=== PATIENT | female | born 1970 | race Caucasian/White ===

== ENCOUNTER 2017-08-25 16:57 | Inpatient (IN) ==
[2017-08-26] MEDS ORDERED: Nitroglycerin 0.4 MG TAB.SUBL SL PRN (01:36)
[2017-08-26] MEDS ORDERED: Ondansetron 4 MG/2 ML VIAL IVP PRN (01:36)
[2017-08-26] MEDS: *HR* OxyCODONE/APAP 5/325 TABLET PO PRN ×4 (02:20→21:13)
[2017-08-26 03:18] LABS: Basophils % 0.1 %; Eosinophils # 0.2 K/mcL (0.0-0.6); Hematocrit 34.6 % (35.3-44.9); Hemoglobin 11.8 g/dL (11.5-15.4); Immature Granulocytes % 0.2 % (0-4); Immature Platelets 1.6 % (1.1-6.1); Lymphocytes # 3.3 K/mcL (0.6-4.6); Lymphocytes % 33.3 %; Mean Corpuscular HGB Conc 34.1 g/dL (31.6-35.5); Mean Corpuscular Hemoglobin 30.6 pg (28.0-33.3); Mean Corpuscular Volume 89.9 fL (83.0-100.0); Mean Platelet Volume 9.2 fL (9.4-12.4); Monocytes # 0.6 K/mcL (0.0-1.3); Monocytes % 5.6 %; Neutrophils # 5.9 K/mcL (1.6-8.9); Platelet Count 226 K/mcL (140-400); Red Blood Count 3.85 M/mcL (3.82-4.97); Red Cell Distribution Width 12.9 % (11.5-14.5); Segmented Neutrophils % 58.8 %
[2017-08-26 03:34] LABS: Prothrombin Time 10.9 Seconds (9.4-12.1)
[2017-08-26 03:37] LABS: Alanine Aminotransferase 15 Units/L (7-52); Albumin 3.6 g/dL (3.5-5.7); Albumin/Globulin Ratio 1.4 (1.1-2.2); Alkaline Phosphatase 71 Units/L (34-104); Aspartate Amino Transferase 18 Units/L (13-39); BUN/Creatinine Ratio 26 (6-26); Bilirubin,Total 0.4 mg/dL (0.3-1.0); Blood Urea Nitrogen 17 mg/dL (6-20); Calcium 8.8 mg/dL (8.6-10.3); Carbon Dioxide 25 mEq/L (23-29); Chloride 108 mEq/L (98-107); Globulin 2.5 g/dL (2.4-3.5); Glucose 100 mg/dL (70-105); Osmolality,Calculated 290 (280-300); Potassium 3.6 mEq/L (3.5-5.1); Sodium 139 mEq/L (136-145); Total Protein 6.1 g/dL (6.4-8.9); eGFR For African Americans > 60 (> 60); eGFR For Non-African Americans > 60 (> 60)
[2017-08-26] MEDS ORDERED: Regadenoson 0.4 MG/5 ML SYRINGE IVP ONE (05:45)
[2017-08-26] MEDS ORDERED: Naloxone 0.4 MG/ML INJ IVP PRN (05:59)
--- NOTE | 2017-08-26 06:28 | Internal Med History&Physical ---
Date of Encounter: 08/26/17 Time of Encounter: 00:30 Internal Medicine - H&P: HPI Chief complaint: Chest pain Admitted From: Home Plans for Post Hospital Care: Home History of present illness: Ms. Powers is a 47 year old female Patient presented to the ER in [place] after experiencing left-sided chest pain while at rest at home. She stated that it radiated down her left arm. The pain initially started 8 PM the night prior to admission and did not improve. The pain is constant and did not change during this time. Patient also states that she was feeling nauseous and vomited multiple times but she denies abdominal pain. on the way to the ER at [place] she received 324 mg of aspirin, 1 sublingual nitroglycerin, but did not improve her pain. She has a history of pain similar to this in the past about 3 years ago, and had a cardiac catheter performed but it was negative. She has a significant family history of coronary artery disease is all in the mother and father. Emergency room at [place] she received a dose of heparin, Zofran and a total of 10 mg of morphine. She was transferred here because the stress test machine at their facility was not functioning well. Of note patient states that a few days ago she passed to blood clots rectally, and has been noting bruising on her legs that she cannot explain. Past Med Surg Social Fam HX - Past Medical History Medical history: asthma, diabetes, GERD, hyperlipidemia, hypertension Additional medical history: degenerative disc disease Psychiatric history: bipolar - Past Surgical History Surgical History: cholecystectomy, other Additional surgical history: tubal - Social History Smoking Status: Never smoker Smokeless Tobacco Status: No Alcohol use: none Drug use: none - Family History Mother Hx Family Cardiac Disorders: Yes (OK, HTN) Hx Family Respiratory Disorders: Yes (COPD, ASHTMA) Hx Family Endocrine Disorder: Yes (DM) Internal Medicine - H&P: Meds Estrogens, Conjugated [Premarin] 0.45 mg PO DAILY 08/25/17 [History] HYDROcodone/Acet 5/325 mg [[place] 5-325 mg] 1 tab PO TID PRN 08/25/17 [History] Lisinopril [Zestril] 5 mg PO DAILY 08/25/17 [History] OLANZapine [Zyprexa] 5 mg PO DAILY 08/25/17 [History] Omeprazole [PriLOSEC] 40 mg PO DAILY 08/25/17 [History] Simvastatin [Zocor] 5 mg PO DAILY 08/25/17 [History] Gabapentin [Gralise] 600 mg PO TID 08/26/17 [History] metFORMIN [Glucophage] 1,000 mg PO DAILY 08/26/17 [History] rOPINIRole [Requip] 1 mg PO HS 08/26/17 [History] 3 Allergy/AdvReac Type Severity Reaction Status Date / Time No Known Allergies Allergy Verified 08/26/17 00:27 All Systems PM: A 10-system review of systems was performed and is negative for pertinent findings except as documented above in the HPI. - Constitutional Vitals: Temp Pulse Resp BP Pulse Ox 97.8 F 59 16 115/84 96 08/26/17 04:02 08/26/17 04:02 08/26/17 04:02 08/26/17 04:02 08/26/17 04:02 General appearance: Present: mild distress, A&O X 3, obese - Head Head exam: Present: normal inspection - Respiratory Respiratory exam: Present: CTAB. Absent: rales, rhonchi - Cardiovascular Cardiovascular exam: Present: RRR. Absent: diastolic murmur, systolic murmur - GI/Abdominal GI/Abdominal exam: Present: normal bowel sounds. Absent: guarding, tenderness - Extremities Exam Extremities exam: Present: pedal edema, warm, radial pulses palpable and symmetrical. Absent: tenderness - Neurological Exam Neurological exam: Present: oriented X3. Absent: motor sensory deficit, no focal deficits - Skin Additional comments: The patient described bruising on her legs, significant bruising on her legs is not noted. There were however some small 0.5-1 cm dark spots on her legs were not tender with palpation Internal Med - H&P Results - Labs CBC & Chem 7: 08/26/17 02:56 08/26/17 02:56 Labs: Short CBC 08/26/17 Range/Units 02:56 WBC 10.0 (4.3-11.1) K/mcL Hgb 11.8 (11.5-15.4) g/dL Hct 34.6 L (35.3-44.9) % Plt Count 226 (140-400) K/mcL Neutrophils # 5.9 (1.6-8.9) K/mcL BMP 08/26/17 02:56 Sodium 139 Potassium 3.6 Chloride 108 H Carbon Dioxide 25 BUN 17 Creatinine 0.65 Glucose 100 Calcium 8.8 Cardiac Enzymes 08/26/17 08/26/17 Range/Units 01:28 02:56 Troponin I < 0.03 < 0.03 (< 0.04) ng/mL Liver Function 08/26/17 Range/Units 02:56 Total Bilirubin 0.4 (0.3-1.0) mg/dL AST 18 (13-39) Units/L ALT 15 (7-52) Units/L Alkaline Phosphatase 71 (34-104) Units/L Albumin 3.6 (3.5-5.7) g/dL - Assessment and plan (1) Chest pain Current Visit: Yes Status: Acute Assessment and plan: Transferred from [facility] after some workup and treatment. She received 5 mg of morphine twice as well as a dose of heparin. Troponins have been negative thus far. EKG was normal sinus rhythm twice prior to her arrival. Due to her history of similar pain in the past leading to a cardiac catheter which was negative at that time she was transferred here for further evaluation. Other causes of chest pain were also addressed, her d-dimer at [facility] was less than 950 making pulmonary embolism less likely. Patient does not work and denies heavy lifting and she was not tender with palpation. Patient's BNP is only 18 as well. She does have a history of asthma and uses an albuterol inhaler about once a week, but she states that this is different than her asthma symptoms. Because patient's troponins were not elevated heparin drip was not started. Pain control was achieved with Percocet. Stress test in the morning Cardiology consult Repeat EKG in the morning Continue following troponins Qualifiers: Qualified Code(s): R07.9 - Chest pain, unspecified (2) Gastrointestinal bleed Current Visit: Yes Status: Acute Assessment and plan: Questionable GI bleed as per patient. She states that recently she had to large blood clots passed rectally. Her hemoglobin levels are within normal limits. Hesitant to treat her with heparin because of this not being confirmed. Obtain stool occult blood test and follow-up results Consider GI consult if positive Qualifiers: Qualified Code(s): K92.2 - Gastrointestinal hemorrhage, unspecified (3) Urinary tract infection Current Visit: Yes Status: Acute Assessment and plan: Patient was found to have a urinary tract infection at the [place] ER as evidenced by small leukocytic esterase, positive bacteria. There is negative nitrite but culture was indicated to ER there treated her with ciprofloxacin before sending her here. Patient denies dysuria. Follow-up urine cultures. Discontinue ciprofloxacin, and treat with Macrobid. Qualifiers: Qualified Code(s): N39.0 - Urinary tract infection, site not specified (4) Diabetes Current Visit: Yes Status: Acute Assessment and plan: Patient states that she has diabetes though she is not on insulin and does not take metformin. She controls her blood sugars with her diet. Continue to monitor blood sugar with meals and at night. Qualifiers: Diabetes mellitus type: type 2 Diabetes mellitus skilled nursing insulin use: without skilled nursing use Diabetes mellitus complication status: without complication Qualified Code(s): E11.9 - Type 2 diabetes mellitus without complications (5) GERD (gastroesophageal reflux disease) Current Visit: Yes Status: Acute Assessment and plan: Chronic patient takes Prilosec at home Continue home medicine Qualifiers: Esophagitis presence: esophagitis presence not specified Qualified Code(s) : K21.9 - Gastro-esophageal reflux disease without esophagitis (6) HTN (hypertension) Current Visit: Yes Status: Acute Assessment and plan: Chronic patient takes lisinopril at home Continue home medicine Qualifiers: Hypertension type: essential hypertension Qualified Code(s): I10 - Essential (primary) hypertension (7) Hyperlipidemia Current Visit: Yes Status: Acute Assessment and plan: Chronic patient takes simvastatin at home Continue home medicine Qualifiers: Qualified Code(s): E78.5 - Hyperlipidemia, unspecified - Time Spent With Patient Total time spent is greater than 50% in coordination of care (as documented) at patient's floor/unit and/or counseling patient: Greater than 35 minutes
[2017-08-26 06:55] LABS: Hematocrit 34.9 % (35.3-44.9); Hemoglobin 11.7 g/dL (11.5-15.4); Mean Corpuscular HGB Conc 33.5 g/dL (31.6-35.5); Mean Corpuscular Hemoglobin 30.3 pg (28.0-33.3); Mean Corpuscular Volume 90.4 fL (83.0-100.0); Mean Platelet Volume 9.2 fL (9.4-12.4); Platelet Count 208 K/mcL (140-400); Red Blood Count 3.86 M/mcL (3.82-4.97)
[2017-08-26 07:15] LABS: BUN/Creatinine Ratio 25 (6-26); Blood Urea Nitrogen 17 mg/dL (6-20); Calcium 8.7 mg/dL (8.6-10.3); Carbon Dioxide 25 mEq/L (23-29); Chloride 107 mEq/L (98-107); Glucose 93 mg/dL (70-105); Osmolality,Calculated 289 (280-300); Potassium 3.6 mEq/L (3.5-5.1); Sodium 139 mEq/L (136-145); eGFR For African Americans > 60 (> 60); eGFR For Non-African Americans > 60 (> 60)
[2017-08-26] MEDS: Nitrofurantoin (BID) 100 MG CAPSULE PO SCH ×2 (09:52→17:09)
[2017-08-26] MEDS: Gabapentin 300 MG CAPSULE PO SCH ×3 (09:52→21:12)
[2017-08-26] MEDS: OLANZapine 5 MG TAB.RAPDIS PO SCH (09:52)
--- NOTE | 2017-08-26 12:36 | Electrocardiograph Report ---
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
--- NOTE | 2017-08-26 17:03 | Internal Med Progress Note ---
Date of Encounter: 08/26/17 Time of Encounter: 11:00 - Assessment and plan (1) Chest pain Current Visit: Yes Status: Acute Assessment and plan: Patient reported left-sided chest pain while at rest prior to admission. She reports radiation to left arm, at that time it was constant. Patient reports associated nausea, vomiting without abdominal pain. Patient was transferred here from [facility] due to their inability to perform a stress test. Patient is a 2 day stress test, day 1 completed today. Troponins have been negative. EKG shows sinus rhythm with a rate of 62, NC interval 201, QRS 92, QTC 401/QTC 406. Continue telemetry Aspirin and nitroglycerin for chest pain Continue to monitor labs and vitals Day 2 stress test tomorrow Consider cardiology consult after results of stress test if warranted. Qualifiers: Chest pain type: unspecified Qualified Code(s): R07.9 - Chest pain, unspecified (2) Diabetes Current Visit: Yes Status: Acute Assessment and plan: Chronic. Signs feel insulin, Accu-Cheks before meals at bedtime, diabetic/ cardiac diet. 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 Continue home medication. Qualifiers: Esophagitis presence: esophagitis presence not specified Qualified Code(s) : K21.9 - Gastro-esophageal reflux disease without esophagitis (4) Gastrointestinal bleed Current Visit: Yes Status: Acute Assessment and plan: Patient reports to admitting physician that she has passed a couple of large blood clots by rectum. Patient makes no mention of this during my exam today. There is no abdominal pain. Patient denies any nausea, vomiting, diarrhea. Hemoglobin has remained steady and stable throughout. There is no sign of anemia or acute bleeding. Occult blood is ordered and pending. Qualifiers: GI bleed type/associated pathology: unspecified gastrointestinal hemorrhage type Qualified Code(s): K92.2 - Gastrointestinal hemorrhage, unspecified (5) HTN (hypertension) Current Visit: Yes Status: Acute Assessment and plan: Chronic. Well controlled. Continue lisinopril. Qualifiers: Hypertension type: essential hypertension Qualified Code(s): I10 - Essential (primary) hypertension (6) Hyperlipidemia Current Visit: Yes Status: Acute Assessment and plan: Chronic. Continue home dose of Pravachol. Qualifiers: Qualified Code(s): E78.5 - Hyperlipidemia, unspecified (7) Urinary tract infection Current Visit: Yes Status: Acute Assessment and plan: Patient was found to have urinary tract infection [facility] as evidenced by small amount of leukocyte esterase, positive bacteria. Urine was negative for nitrites blood culture was triggered. She was treated with ciprofloxacin at [facility]. Patient denies any urinary symptoms, no abdominal pain, no nausea, vomiting, fever, chills. Admitting physician discontinued Cipro, started treatment with Macrobid. We will attempt to follow cultures from [facility]. Qualifiers: Urinary tract infection type: acute cystitis Hematuria presence: without hematuria Qualified Code(s): N30.00 - Acute cystitis without hematuria (8) DVT prophylaxis Current Visit: Yes Status: Acute Assessment and plan: Encourage ambulation. SCDs ordered. - Time Spent With Patient Total time spent is greater than 50% in coordination of care (as documented) at patient's floor/unit and/or counseling patient: - Subjective Interval history: Patient was seen and assessed at bedside at 11 AM. Patient reports that she has had some left chest pain with radiation to her left shoulder, describes sharp pain in mid thoracic back. She reports that all of these become worse with deep inspiration and movement. There is no tenderness to palpation on chest or back. She denies nausea, vomiting, diarrhea or constipation. She denies current chest pain or shortness of breath. She denies abdominal pain or peripheral edema. She denies any headache or vision changes. Patient is a 2 day stress, she is aware and all questions have been answered.. - Constitutional Vitals: Temp Pulse Resp BP Pulse Ox 97.6 F 66 18 99/58 97 08/26/17 15:26 08/26/17 15:26 08/26/17 15:26 08/26/17 15:26 08/26/17 15:26 General appearance: Present: cooperative, A&O X 3, morbidly obese, no acute distress, obese, answers questions appropriately - Head Head exam: Present: atraumatic, normal inspection, normocephalic - Eye Eye exam: Present: normal appearance, conjuntiva pink, sclera anicteric - Neck Neck exam general surgery: Present: supple, trachea midline. Absent: lymphadenopathy, tenderness - Respiratory Respiratory exam: Present: CTAB. Absent: accessory muscle use, rales, rhonchi, wheezes - Cardiovascular Cardiovascular exam: Present: RRR, +S1, +S2. Absent: diastolic murmur, gallop, rubs, systolic murmur - GI/Abdominal GI/Abdominal exam: Present: normal bowel sounds, soft. Absent: distended, hepatomegaly, tenderness - Extremities Exam Extremities exam: Present: normal capillary refill, warm, radial pulses palpable and symmetrical. Absent: calf tenderness, cyanotic, pedal edema - Neurological Exam Neurological exam: Present: alert, oriented X3, no focal deficits, strengths equal and symetr throughout. Absent: altered, facial droop, speech deficit - Skin Skin exam: Present: dry, intact, normal color, warm. Absent: rash Internal Medicine: Result - Labs CBC & Chem 7: 08/26/17 06:40 08/26/17 06:40 Labs: Short CBC 08/26/17 08/26/17 Range/Units 02:56 06:40 WBC 10.0 9.6 (4.3-11.1) K/mcL Hgb 11.8 11.7 (11.5-15.4) g/dL Hct 34.6 L 34.9 L (35.3-44.9) % Plt Count 226 208 (140-400) K/mcL Neutrophils # 5.9 (1.6-8.9) K/mcL BMP 08/26/17 08/26/17 02:56 06:40 Sodium 139 139 Potassium 3.6 3.6 Chloride 108 H 107 Carbon Dioxide 25 25 BUN 17 17 Creatinine 0.65 0.69 Glucose 100 93 Calcium 8.8 8.7 Cardiac Enzymes 08/26/17 08/26/17 08/26/17 Range/Units 01:28 02:56 06:40 Troponin I < 0.03 < 0.03 < 0.03 (< 0.04) ng/mL 08/26/17 Range/Units 13:37 Troponin I < 0.03 (< 0.04) ng/mL Liver Function 08/26/17 Range/Units 02:56 Total Bilirubin 0.4 (0.3-1.0) mg/dL AST 18 (13-39) Units/L ALT 15 (7-52) Units/L Alkaline Phosphatase 71 (34-104) Units/L Albumin 3.6 (3.5-5.7) g/dL - ABG Interpretation ABG results: PT/INR, D-dimer PT 10.9 Seconds (9.4-12.1) 08/26/17 02:56 Consult Discharge Plan - Plan Referrals: Anita Neely CNP [Primary Care Provider] - Tobi Lema [Family Provider] -
[2017-08-26] MEDS ORDERED: rOPINIRole 0.25 MG TABLET PO SCH (21:00)
[2017-08-27] MEDS: Gabapentin 300 MG CAPSULE PO SCH (07:56)
[2017-08-27] MEDS: *HR* OxyCODONE/APAP 5/325 TABLET PO PRN (07:57)
[2017-08-27] MEDS: Nitrofurantoin (BID) 100 MG CAPSULE PO SCH (08:03)
[2017-08-27] MEDS: OLANZapine 5 MG TAB.RAPDIS PO SCH (08:04)
[2017-08-27] MEDS ORDERED: Sennosides 8.6 MG TABLET PO ONE (11:36)
[2017-08-27 11:48] VITALS: BP 101/67
--- NOTE | 2017-08-27 12:22 | Discharge Summary ---
- NOTES TO OUTPATIENT PROVIDER Notes to Outpatient Provider: Pt was transferred from [place] and admitted for evaluation of chest pain. Troponins of been negative, EKG was sinus rhythm without acute ST changes. Patient nuclear stress test that was negative for ischemia or infarct with gated EF of 70%. Pain is reproducible with palpation and deep inspiration, likely musculoskeletal in nature. Recommend follow up with PCP in the next few days for recheck. Orders not resulted at time of discharge: Pending orders 08/26/17 01:42 NM nicole perf SPECT multi [NM] Routine Date of Encounter: 08/27/17 Time of Encounter: 10:20 - Discharge Diagnosis (1) Chest pain Priority: Primary Status: Acute Assessment and Plan: Pt continues to report chest pain, though it is improving since admission. Reports that pain is increased with deep inspiration and with palpation. Stress test negative for ischemia or infarct with gated EF 70%. Troponins negative, EKG negative for ischemic changes. Chest pain is likely musculoskeletal in nature. Pt denies new cough or recent URI symptoms or sick contacts. Qualifiers: Chest pain type: unspecified Qualified Code(s): R07.9 - Chest pain, unspecified (2) Diabetes Priority: Secondary Status: Chronic Assessment and Plan: Chronic. Type II. Continue home medications. 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 Continue home medication. Qualifiers: Esophagitis presence: esophagitis presence not specified Qualified Code(s) : K21.9 - Gastro-esophageal reflux disease without esophagitis (4) Gastrointestinal bleed Priority: Secondary Status: Acute Assessment and Plan: There is no abdominal pain. Patient denies any nausea, vomiting, diarrhea. Hemoglobin has remained steady and stable throughout. There is no sign of anemia or acute bleeding. Occult blood is ordered and pending. Qualifiers: GI bleed type/associated pathology: unspecified gastrointestinal hemorrhage type Qualified Code(s): K92.2 - Gastrointestinal hemorrhage, unspecified (5) HTN (hypertension) Priority: Secondary Status: Chronic Assessment and Plan: Chronic. Stable. Continue lisinopril. Qualifiers: Hypertension type: essential hypertension Qualified Code(s): I10 - Essential (primary) hypertension (6) Hyperlipidemia Priority: Secondary Status: Chronic Assessment and Plan: Chronic. Continue home medication. Qualifiers: Qualified Code(s): E78.5 - Hyperlipidemia, unspecified (7) Urinary tract infection Priority: Secondary Status: Acute Assessment and Plan: Patient was found to have urinary tract infection [facility] as evidenced by small amount of leukocyte esterase, positive bacteria. Urine was negative for nitrites blood, culture was triggered. She was treated with ciprofloxacin at [facility]. Patient denies any urinary symptoms, no abdominal pain, no nausea, vomiting, fever, chills. Will continue Macrobid. I spoke with Richi in the lab at [place] today and she states that it is not resulted yet. Qualifiers: Urinary tract infection type: acute cystitis Hematuria presence: without hematuria Qualified Code(s): N30.00 - Acute cystitis without hematuria (8) DVT prophylaxis Priority: Secondary Status: Acute Assessment and Plan: Encourage ambulation. SCDs ordered. (9) Morbid obesity Priority: Secondary Status: Chronic Assessment and Plan: Chronic. Lifestyle modifications. Hospital course: Ms. Powers is a 47 year old female with PMH including type 2 diabetes, GERD, hypertension, hyperlipidemia, morbid obesity. Patient presented to [facility] with complaint of chest pain. She was transferred here for stress test due to the [facility] inability to perform a stress test. Troponins were negative, EKG was negative, stress test was negative for ischemia or infarct with gated EF of 70%. Chest pain has had a left chest, she denies radiation of the pain, nausea, vomiting, diaphoresis. Pain is reproducible with deep inspiration and movement. Likely this is musculoskeletal chest pain of unknown origin. She denies any recent injuries or change in activities. Patient was also incidentally found to have a urinary tract infection at the [facility] facility. She was treated with one dose of Cipro prior to admission here, antibiotic was changed to Macrobid 100 mg by mouth twice daily. It will be continued for 3 more days. I did attempt to get urine culture results from [facility], is not resulted yet. Recommend outpatient follow-up with primary care for continued evaluation of chest pain persists. Vitals and labs are stable and within normal limits. Patient is stable and appropriate for discharge. Discharge discussed with: patient - Time Spent with Patient Total time spent providing and/or coordinating discharge services: Less than 30 minutes - Discharge Medications Prescriptions: Nitrofurantoin (BID) [Macrobid] 100 mg PO BIDWM #6 capsule Home Medications: Estrogens, Conjugated [Premarin] 0.45 mg PO DAILY 08/25/17 [History] HYDROcodone/Acet 5/325 mg [[place] 5-325 mg] 1 tab PO TID PRN 08/25/17 [History] Lisinopril [Zestril] 5 mg PO DAILY 08/25/17 [History] OLANZapine [Zyprexa] 5 mg PO DAILY 08/25/17 [History] Omeprazole [PriLOSEC] 40 mg PO DAILY 08/25/17 [History] Gabapentin [Neurontin] 600 mg PO TID 08/26/17 [History] Pravastatin Sodium [Pravachol] 20 mg PO HS 08/26/17 [History] metFORMIN [Glucophage] 1,000 mg PO DAILY 08/26/17 [History] rOPINIRole [Requip] 1 mg PO HS 08/26/17 [History] Nitrofurantoin (BID) [Macrobid] 100 mg PO BIDWM #6 capsule 08/27/17 [Rx] Allergies/Adverse Reactions: 3 Allergy/AdvReac Type Severity Reaction Status Date / Time No Known Allergies Allergy Verified 08/26/17 00:27 Date of admission: 08/26/17 01:36 Primary care physician: Melquiades Estrada Consults: 08/26/17 06:01 Consult to Cardiology [CONS] Routine Comment: Consulting Provider: [facility] [place] Reason for Consult: Chest pain, stress test ordered. Patient has history of cardiac cath 3 years ago, which was negative. Call Completed: No Discharging clinician: Marah Marmolejo Anticipated date of discharge: 08/27/17 - Constitutional Vitals: Temp Pulse Resp BP Pulse Ox 98.1 F 73 18 101/67 96 08/27/17 11:43 08/27/17 11:43 08/27/17 11:43 08/27/17 11:43 08/27/17 11:43 General appearance: Present: cooperative, A&O X 3, morbidly obese, no acute distress, answers questions appropriately - Head Head exam: Present: atraumatic, normocephalic - Eye Eye exam: Present: normal appearance, conjuntiva pink, sclera anicteric - Neck Neck exam general surgery: Present: supple, trachea midline. Absent: lymphadenopathy, tenderness - Respiratory Respiratory exam: Present: CTAB. Absent: accessory muscle use, chest wall tenderness, rales, respiratory distress, rhonchi, wheezes - Cardiovascular Cardiovascular exam: Present: RRR, +S1, +S2. Absent: diastolic murmur, gallop, rubs, systolic murmur - GI/Abdominal GI/Abdominal exam: Present: normal bowel sounds, soft. Absent: distended, hepatomegaly, tenderness - Extremities Exam Extremities exam: Present: normal capillary refill, normal inspection, warm, radial pulses palpable and symmetrical. Absent: calf tenderness, cyanotic, pedal edema, tenderness - Neurological Exam Neurological exam: Present: alert, oriented X3, no focal deficits. Absent: facial droop, speech deficit - Skin Skin exam: Present: dry, intact, normal color, warm. Absent: rash - Patient Status Disposition: Home, Self-Care Condition: Good Functional capacity at discharge: independent ambulation Overall status at discharge: patient is progressing back to baseline - Discharge Instructions Follow Up With: Anita Neely CNP [Primary Care Provider] - Tobi Lema [Family Provider] - Additional Instructions: Please follow up with your PCP in the next 7 days for a recheck. Return to the closest ER if your symptoms return or worsen, or if you have any other problems or concerns. Take your medications as directed. Your antibiotic was called into [facility] pharmacy. Return to your normal diet and activities as tolerated. - Diet and Activity Activity: increase activity as tolerated Diet: diabetic diet, low fat, low cholesterol
== END 2017-08-27 17:33 | disposition home or self-care (01) | DRG 313 ==
LOC: 3BNU
PROVIDERS: ADMIT Hospitalist; ATTEND Hospitalist

== ENCOUNTER 2019-04-02 18:24 | Inpatient (IN) ==
[2019-04-02] MEDS ORDERED: *HR* LORazepam 2 MG/ML VIAL IM PRN (20:30)
[2019-04-02] MEDS ORDERED: Haloperidol Lactate 5 MG/ML VIAL IM PRN (20:30)
[2019-04-02] MEDS ORDERED: traZODone 50 MG TABLET PO PRN (20:30)
[2019-04-02] MEDS ORDERED: MOM Conc 10 ML UD.LIQ PO PRN (20:30)
[2019-04-02] MEDS ORDERED: *HR* LORazepam 1 MG TABLET PO PRN (20:30)
[2019-04-02] MEDS ORDERED: Mag Hydrox/Al Hydrox/Simeth 30 ML UDC PO PRN (20:30)
[2019-04-02] MEDS ORDERED: hydrOXYzine pamoate 25 MG CAPSULE PO PRN (20:30)
[2019-04-03] MEDS: Acetaminophen 325 MG TABLET PO PRN ×2 (07:34→13:23)
[2019-04-03] MEDS: Lurasidone 20 MG TABLET PO SCH (11:35)
[2019-04-04] MEDS: Acetaminophen 325 MG TABLET PO PRN (04:13)
[2019-04-04] MEDS: Lurasidone 20 MG TABLET PO SCH (08:18)
[2019-04-04 08:25] VITALS: BP 138/91
== END 2019-04-04 15:05 | disposition home or self-care (01) | DRG 885 ==
LOC: EMEROOARM 18:24 → 1ANU 19:48
PROVIDERS: ADMIT Psychiatry & Neurology Psychiatry; ATTEND Psychiatry & Neurology Psychiatry